=== PATIENT | male | born 1990 | race Caucasian/White ===

== ENCOUNTER 2019-10-21 11:05 | Emergency (ER) | payer OTHER, SELFPAY ==
--- NOTE | ~2019-10-21 | XR_ITS ---
XR chest 1V portable DATE: 10/21/2019 11:35 INDICATION: Cough. Sore throat. Girlfriend tested positive for Covid 19 TECHNIQUE: Portable upright AP chest on 10/21/2019 1132 hours COMPARISON: None FINDINGS: Normal heart size. No hilar or mediastinal enlargement. No pulmonary infiltrate or consolid ation, pleural effusion or pulmonary vascular congestion or pneumothorax. Included skeletal structures are unremarkable. IMPRESSION: No active cardiopulmonary disease Reviewed, dictated and finalized at location A.
--- NOTE | 2019-10-21 11:09 | ED.URI ---
HPI - URI/Sore Throat General Chief Complaint: Upper Respiratory Infection Stated Complaint: sore thoat, his fiambere was diagnosed with COVID Time Seen by Provider: 10/21/19 11:07 History of Present Illness HPI Narrative: Patient is a 28 YO male otherwise healthy who comes to the ED today with concerns for COVID. He developed a sore throat and mild cough 2 days ago. No fevers, dyshagia, voice changes, SOB or any other symptoms. Fiance with diagnosed with covid earlier this week. Related Data Home Medications Medication Instructions Recorded Confirmed atenolol 100 mg PO DAILY 10/21/19 Allergies Allergy/AdvReac Type Severity Reaction Status Date / Time No Known Allergies Allergy Verified 10/21/19 11:14 Review of Systems Review of Systems: All systems reviewed & are unremarkable except as noted in HPI and below PMFSH Social History Social History Gender identity (if verbalized by the patient): Male Exam Const: General: healthy appearing, no acute distress and alert Orientation/consciousness: patient oriented x3 HENMT: Head: normal to inspection General nose exam: Normal external nose present and Normal nares present Face and sinus: normal facial exam and no sinus tenderness Mouth: Yes moist mucous membranes, Yes dry mucous membranes and Yes Abnormal oral and palatal mucosa present Throat: posterior oropharynx normal and uvula midline Other: No exudates Eyes: Conjunctivae: conjunctivae normal Pupils: Equal, round and reactive pupils present Neck: Neck: normal visual inspection, no lymphadenopathy and no meningeal signs Chest: Chest palpation & inspection: normal inspection of the chest Resp: Effort & Inspection: normal respiratory effort Auscultation: clear to auscultation bilaterally Cardio: Rate: regular rate Rhythm: regular rhythm GI: GI Palp: Yes Soft to palpation and No Tenderness to palpation present (GI) Auscultation: normal bowel sounds Skin: General skin exam: normal color Neuro: General: patient oriented x3 and moves all extremities Extrem: General: normal to inspection Psych: Appearance: grossly normal Mental Status: mental status grossly normal Thought content: Yes Normal thought content present Course Course Emergency Course: CXR and strep test negative. Symptoms felt to be viral in nature. Educated on conservative managment, return precautions with any SOB or trouble swallowing. Educated on self-isolation until covid test is resulted. Vital Signs Vital signs: Vital Signs Temperature 37.2 C 10/21/19 11:10 Pulse Rate 63 10/21/19 11:10 Respiratory Rate 22 H 10/21/19 11:10 Blood Pressure 136/90 10/21/19 11:10 Pulse Oximetry 100 10/21/19 11:10 Temperature 37.2 C 10/21/19 11:10 Pulse Rate 62 10/21/19 12:06 Respiratory Rate 18 10/21/19 12:06 Blood Pressure 122/73 10/21/19 12:06 Pulse Oximetry 98 10/21/19 12:06 MDM - URI/Sore Throat Lab Data Labs: Lab Results 10/21/19 Range/Units 11:24 SARS-CoV-2 RNA (RT-PCR) Pending Strep Screen Presumptive Negative *(Reference Range: Negative)* Discharge Plan Discharge Clinical Impression: Pharyngitis Qualifiers: Pharyngitis/tonsillitis etiology: unspecified etiology Qualified Code(s): J02.9 - Acute pharyngitis, unspecified Upper respiratory infection Qualifiers: URI type: unspecified viral URI Qualified Code(s): J06.9 - Acute upper respiratory infection, unspecified Patient Disposition: Home, Self-Care Condition: Stable Instructions: Antibiotic Form, Tonsillitis (ED), Viral Syndrome (ED) Prescriptions: No Action atenolol 100 mg Tablet 100 mg PO DAILY RF: 0 Follow-up/Referrals: PHYSICIAN,HAND [employer]ANER [Primary Care Provider] - Time of Disposition: 12:17
[2019-10-21 11:10] VITALS: BP 136/90; PULSE 63; RESP 22; TEMP 37.2; O2SAT 100
[2019-10-21 11:13] VITALS: PULSE 72
[2019-10-21 12:06] VITALS: BP 122/73; PULSE 62; RESP 18; O2SAT 98
[2019-10-22 04:03] LABS: SARS-CoV-2 RNA PCR Negative
== END 2019-10-21 12:37 | disposition home or self-care (01) ==
PROVIDERS: Physician Assistant Medical; Emergency Provider Emergency Medicine
DX: J02.9 Acute pharyngitis, unspecified (principal); J06.9 Acute upper respiratory infection, unspecified; Z20.828 Contact with and (suspected) exposure to other viral communicable diseases
CPT/HCPCS: 71045; 87081; 87635; 87880; 99283; C9803; U0003

== ENCOUNTER 2022-09-22 18:57 | Emergency (ER) | payer OTHER, SELFPAY ==
--- NOTE | 2022-09-22 19:13 | ED.URI ---
HPI - URI/Sore Throat General Chief Complaint: Upper Respiratory Infection Stated Complaint: sore throat, congestion,bodyache Source: patient and RN notes reviewed History of Present Illness HPI Narrative: 31-year-old male presents to urgent care with complaints of congestion, headache, body aches, lethargy, a mild cough, and sore throat since Thursday. Patient reports ear fullness bilaterally. Denies any fevers, chills, chest pain, vomiting, diarrhea, or abdominal pain. Patient took DayQuil today with minimal relief. Some parts of this dictation were generated by voice recognition software and may contain typographical and/or grammatical inaccuracies. Related Data Home Medications Medication Instructions Recorded Confirmed atenolol 100 mg tablet 100 mg PO DAILY 10/21/19 09/22/22 Allergies Allergy/AdvReac Type Severity Reaction Status Date / Time No Known Allergies Allergy Verified 09/22/22 19:08 Review of Systems Review of Systems: Pertinent positives and pertinent negatives per HPI. [facility] Social History Social History Gender identity (if verbalized by the patient): Male Comments At the time of my signature, I reviewed and agree with the nursing past medical, surgical, social, and family history. There is no relevant family history pertinent to the patient complaint. Exam Narrative: GENERAL: This is a well-nourished, well-developed patient, in no apparent distress. HEAD: normocephalic, atraumatic. EYES: Sclera clear/white. Vision is grossly intact. EARS: External ears normal, auditory canals clear and without drainage, TMs normal without perforation. Hearing grossly intact. NOSE: External nose normal with no obvious nasal discharge, nares without redness, no rhinorrhea. THROAT: Mucous membranes moist, posterior pharynx clear. NECK: Neck supple, non-tender without lymphadenopathy, masses or thyromegaly. CARDIOVASCULAR: Regular rate and rhythm without murmurs, gallops, or rubs. RESPIRATORY: Clear to auscultation. Breath sounds equal bilaterally. No wheezes, rales, or rhonchi. GASTROINTESTINAL: Abdomen soft, non-tender, nondistended. Bowel sounds are active. No hepato-splenomegaly, or palpable masses. No guarding. SKIN: warm, intact with no suspicious lesions or rash, good texture and turgor. NEURO: awake, alert, and oriented to person, place and time. There were no obvious focal neurologic abnormalities. Course Course Level of Care: Express Care Visit Vital Signs Vital signs: Vital Signs Temperature 98 F 09/22/22 19:15 Pulse Rate 71 09/22/22 19:15 Respiratory Rate 16 09/22/22 19:15 Blood Pressure 129/82 09/22/22 19:15 Pulse Oximetry 100 09/22/22 19:15 Temperature 98 F 09/22/22 19:15 Pulse Rate 71 09/22/22 19:15 Respiratory Rate 16 09/22/22 19:15 Blood Pressure 129/82 09/22/22 19:15 Pulse Oximetry 100 09/22/22 19:15 Reviewed MDM - URI/Sore Throat MDM Narrative Medical decision making narrative: Rapid strep is negative in the office; however we will send to the lab for confirmation; there is a small percentage chance that it can come back positive; if it is, we will call you in 2-3days; and your prescription will be call in to your pharmacy. However, there is NO indication for antibiotic at this time. -Increase your fluids and Vitamin C. -Oral rinses such as: Salt water gargles and/or may use topical anesthetic (eg. Chloraseptic spray) or lozenges to relieve dryness or throat pain. -Take tylenol and ibuprofen as needed for pain and fever as directed. -Frequent hand washing or hand resident services coordinator is one of the best ways to prevent spread of infection. -Follow up with primary care provider in 2-3 days if condition is not improving or seek ER visit if your child starts breathing fast/has trouble breathing, is not drinking enough fluids, muffle voice, difficulty opening the mouth or will not wake up or will not
[2022-09-22 19:15] VITALS: BP 129/82; PULSE 71; RESP 16; TEMP 36.6; O2SAT 100
== END 2022-09-22 19:35 | disposition home or self-care (01) ==
PROVIDERS: Emergency Provider Nurse Practitioner Family
DX: J02.9 Acute pharyngitis, unspecified (principal); Z20.822 Contact with and (suspected) exposure to COVID-19; I10 Essential (primary) hypertension
CPT/HCPCS: 87081; 87426; 87880; 99213; C9803; G0463

== ENCOUNTER 2022-12-04 11:16 | Emergency (ER) | payer OTHER, SELFPAY ==
[2022-12-04 11:23] VITALS: BP 130/79; PULSE 60; RESP 16; TEMP 36.6; O2SAT 100
--- NOTE | 2022-12-04 12:03 | ED.WOUNDLAC ---
HPI - Wound/Laceration General Chief Complaint: Wound/Laceration Stated Complaint: wound on nose Time Seen by Provider: 12/04/22 11:52 Source: patient and RN notes reviewed Mode of arrival: ambulatory Limitations: no limitations History of Present Illness HPI narrative: Patient presents today complaining of a sore beneath his left nostril 2 weeks ago that has now spread for the past week up into his nostril and down just above his upper lip. It is causing some crusting continues to worsen. He has been cleaning it and using Neosporin and hydrocortisone without relief. Related Data Home Medications Medication Instructions Recorded Confirmed atenolol 100 mg tablet 100 mg PO DAILY 10/21/19 12/04/22 Allergies Allergy/AdvReac Type Severity Reaction Status Date / Time No Known Allergies Allergy Verified 12/04/22 11:24 Review of Systems Review of Systems: CONSTITUTIONAL: Denies body aches, fever, chills, or sweats. EYES: Denies visual changes, redness, or discharge. ENT: Denies rhinorrhea, congestion, sore throat, or otalgia. CARDIOVASCULAR: Denies chest pain, palpitations, or edema. RESPIRATORY: Denies cough or dyspnea. GASTROINTESTINAL: Denies abdominal pain, nausea, vomiting, or diarrhea. GENITOURINARY: Denies dysuria or hematuria. SKIN: + sore below left nostril MUSCULOSKELETAL: Denies back pain, joint pain, or myalgia. NEUROLOGIC: Denies headache, numbness, tingling, or weakness. PSYCH: Denies depression or anxiety. PMFSH Social History Social History Gender identity (if verbalized by the patient): Male Comments At time of signature, I have reviewed and agree with nursing past medical, surgical, social and family history unless otherwise noted. Please see nursing chart for further information. There is no relevant family history pertinent to the presenting complaint Exam Narrative: GENERAL: Well-appearing, well-nourished, and in no acute distress. HEAD: Normocephalic, atraumatic. EYES: EOMI. No redness or drainage. Conjunctivae normal. ENT: Mucous membranes pink and moist. Nares clear. NECK: Normal AROM. CHEST: No respiratory distress. EXTREMITIES: Normal range of motion. No edema. SKIN: Warm, dry, no rash. Capillary refill normal. Normal skin turgor. Erythematous area of honey crusting to the left filtrum area and into the left nostril. NEURO: No focal deficits. Alert and oriented x3. Gait steady. PSYCH: Normal affect. No signs of depression or anxiety. Course Course Level of Care: Express Care Visit Vital Signs Vital signs: Vital Signs Temperature 97.9 F 12/04/22 11:23 Pulse Rate 60 12/04/22 11:23 Respiratory Rate 16 12/04/22 11:23 Blood Pressure 130/79 12/04/22 11:23 Pulse Oximetry 100 12/04/22 11:23 Oxygen Delivery Room Air 12/04/22 11:23 Temperature 97.9 F 12/04/22 11:23 Pulse Rate 60 12/04/22 11:23 Respiratory Rate 16 12/04/22 11:23 Blood Pressure 130/79 12/04/22 11:23 Pulse Oximetry 100 12/04/22 11:23 Oxygen Delivery Room Air 12/04/22 11:23 Reviewed. Pt has been instructed to follow up with his PCP regarding his elevated blood pressure today. MDM - Wound/Laceration MDM Narrative Medical decision making narrative: Symptoms consistent with impetigo. Will prescribe mupirocin ointment. Patient has a dense mustache, but believes he can get the ointment to penetrate. Will also prescribe Keflex to be started in 3-4 days if the rash does not improve with the mupirocin ointment. Anticipatory guidance given. Differential Diagnosis Differential diagnosis: Likely other (Contact dermatitis, tinea, impetigo, cellulitis) Critical Care Time Critical Care Time Critical Care Time: No Discharge Plan Discharge Clinical Impression: Impetigo Patient Disposition: Home, Self-Care Condition: Stable Instructions: Antibiotic Form, Impetigo (DC) Additional Instru
== END 2022-12-04 12:14 | disposition home or self-care (01) ==
PROVIDERS: Emergency Provider Nurse Practitioner
DX: L01.00 Impetigo, unspecified (principal); I10 Essential (primary) hypertension
CPT/HCPCS: 99213; G0463